=== PATIENT | female | born 1940 | race Caucasian/White ===

== ENCOUNTER 2019-02-02 22:42 | Emergency (ER) | payer MEDICARE, OTHER ==
[2019-02-02 23:52] LABS: Albumin 4.4 g/dL (3.5-5.0); Calcium 9.5 mg/dL (8.4-10.2); Potassium 4.2 mmol/L (3.5-5.1); Total Bilirubin 0.9 mg/dL (0.2-1.3); Total Protein 6.9 g/dL (6.3-8.2)
[2019-02-02 23:55] LABS: Basophils # (A) 0.1 k/uL (0-0.2); Basophils % (A) 1 %; Eosinophils # (A) 0.2 k/uL (0-0.7); Eosinophils % (A) 3 %; Lymphocytes # (A) 1.9 k/uL (1.0-4.8); Lymphocytes % (A) 28 %; MCH 29.3 pg (25.0-35.0); MCHC 33.2 g/dL (31.0-37.0); MCV 88.1 fL (80.0-100.0); Mean Platelet Volume 7.2; Monocytes # (A) 0.3 k/uL (0-1.0); Monocytes % (A) 5 %; Neutrophils # (A) 4.1 k/uL (1.3-7.7); Neutrophils % (A) 62 %; Platelet Count 265 k/uL (150-450); RBC 4.77 m/uL (3.80-5.40); RDW 13.9 % (11.5-15.5); WBC 6.6 k/uL (3.8-10.6)
--- NOTE | 2019-02-03 00:28 | XR ---
EXAM: XR Right Tibia and Fibula, 2 Views CLINICAL HISTORY: Pain. Fall. TECHNIQUE: Frontal and lateral views of the right tibia and fibula. COMPARISON: No relevant prior studies available. FINDINGS: Bones/joints: No acute fracture. No dislocation. Mild degenerative changes at the ankle and knee. Soft tissues: Unremarkable. No radiopaque foreign body. IMPRESSION: No acute fracture of right tibia or fibula.
[2019-02-03 00:30] VITALS: BP 187/86; PULSE 74; RESP 16; TEMP 98.3
--- NOTE | 2019-02-03 00:37 | XR ---
EXAM: XR Left Knee, 4 views XR Right Knee, 4 views CLINICAL HISTORY: Pain. Fall. TECHNIQUE: 4 views of the bilateral knees. COMPARISON: No relevant prior studies available. FINDINGS: Bones/joints: No radiographic evidence of acute fracture. No dislocation. Mild degenerative changes, most prominent at the lateral patella. Soft tissues: Mild soft tissue swelling along anterior and medial aspects of knees. IMPRESSION: 1. No radiographic evidence of acute fracture or dislocation of the knees. 2. Mild degenerative changes of the knees. 3. Mild soft tissue swelling. Correlate clinically.
[2019-02-03 01:07] LABS: Appearance,Urine Cloudy (Clear); Bilirubin,Urine Negative (Negative); Blood,Urine Negative (Negative); Color,Urine Yellow; Glucose,Urine (UA) Negative (Negative); Ketones,Urine Trace (Negative); Leukocyte Esterase,Urine Moderate (Negative); Mucus,Urine Rare /hpf; Nitrite,Urine Negative (Negative); PH, Urine 5.5 (5.0-8.0); Protein,Urine Negative (Negative); RBC,Urine 4 /hpf (0-5); Specific Gravity,Urine 1.018 (1.001-1.035); Squamous Epithelial Cell,Urine 8 /hpf (0-4); Urobilinogen,Urine <2.0 mg/dL (<2.0); WBC,Urine 5 /hpf (0-5)
[2019-02-03] MEDS ORDERED: HYDROcodone/APAP 7.5-325MG 1 EACH TAB PO ONE (01:23)
--- NOTE | 2019-02-03 01:25 | ED ---
General Adult HPI - General Chief complaint: Extremity Injury, Lower Stated complaint: Rt leg issues Time Seen by Provider: 02/02/19 23:06 Source: patient, RN notes reviewed, old records reviewed Mode of arrival: wheelchair Limitations: no limitations - History of Present Illness Initial comments: 78-year-old female patient presents to ED after a mechanical fall. Patient reports that she was outside bending over when she lost her footing and fell on her knees bilaterally. Patient has been ambulatory since fall. Patient complains of pain in her right mid shaft fibula laterally. Patient has secondary complaint in regards to varicose vein in her right lower extremity. Patient reports that her varicose vein on the right lower extremity is mildly w orse than before. Patient denies any other complaints at this time. Patient has a chest pain, shortness of breath abdominal pain, nausea vomiting or diarrhea. Systemic: Pt denies fatigue, myalgia, fever/chills, rash. Pt denies weakness, night sweats, weight loss. Neuro: Pt denies headache, visual disturbances, syncope or pre-syncope. HEENT: Pt denies ocular discharge or irritation, otalgia, rhinorrhea, pharyngitis or notable lymphadenopathy. Cardiopulmonary: Pt denies chest pain, SOB, heart palpitations, dyspnea on exertion. Abdominal/GI: Pt denies abdominal pain, n/v/d. : Pt denies dysuria, burning w/ urination, frequency/urgency. Denies new onset urinary or bowel incontinence. MSK: Pt denies myalgia, loss of strength or function in extremities. Neuro: Pt denies new onset weakness, paresthesias. - Related Data Home Medications Medication Instructions Recorded Confirmed Thyroid,Pork [Nature-Throid] 130 mg PO DAILY 02/02/19 02/02/19 cloNIDine HCL [Catapres] 0.2 mg PO HS 02/02/19 02/02/19 Allergies Allergy/AdvReac Type Severity Reaction Status Date / Time No Known Allergies Allergy Verified 02/02/19 23:36 Review of Systems ROS Statement: Those systems with pertinent positive or pertinent negative responses have been documented in the HPI. ROS Other: All systems not noted in ROS Statement are negative. Past Medical History Past Medical History: Hypertension, Thyroid Disorder History of Any Multi-Drug Resistant Organisms: None Reported Past Surgical History: Appendectomy, Orthopedic Surgery Past Psychological History: No Psychological Hx Reported Smoking Status: Current every day smoker Past Alcohol Use History: None Reported Past Drug Use History: None Reported General Exam - General Exam Comments Initial Comments: Constitutional: NAD, AOX3, Pt has pleasant affect. HEENT: NC/AT, trachea midline, neck supple, no lymphadenopathy. Posterior pharynx non erythematous, without exudates. External ears appear normal, without discharge. Mucous membranes moist. Eyes PERRLA, EOM intact. There is no scleral icterus. No pallor noted. Cardiopulmonary: RRR, no murmurs, rubs or gallops, no JVD noted. Lungs CTAB in anterior and posterior cortez. No peripheral edema. Abdominal exam: Abdomen soft and non-distended. Abdomen non-tender to palpation in all 4 quadrants. Bowel sounds active in LLQ. No hepatosplenomegaly. No ecchymosis Neuro: CN II-XII intact. No nuchal rigidity. NIH 0 MSK: Varicosity noted in right lower extremity, lateral midshaft fibula region. No pathology identified. Distal pulses intact and equal. Full active range of motion of knees bilaterally. No posterior calf tenderness bilaterally, homans sign negative bilaterally. Posterior tibialis and radial pulse +2 bilaterally. Sensation intact in upper and lower extremities. Full active ROM in upper and lower extremities, 5/5 stregnth. Limitations: no limitations Course Vital Signs 02/02/19 02/03/19 22:48 00:29 Temperature 98.7 F 98.3 F Pulse Rate 80 74 Respiratory 20 16 Rate Blood Pressure 197/81 187/86 O2 Sat by Pulse 97 96 Oximetry Medical Decision Making - Medical Decision Making 78-year-old female patient presents to ED after a mechanical fall. Patient reports that she was outside bending over when she lost her footing and fell on her knees bilaterally. Patient has been ambulatory since fall. Patient complains of pain in her right mid shaft fibula laterally. Patient has secondary complaint in regards to varicose vein in her right lower extremity. Patient reports that her varicose vein on the right lower extremity is mildly worse than before. Patient denies any other complaints at this time. Patient has a chest pain, shortness of breath abdominal pain, nausea vomiting or diarrhea. Patient was signed displayed mild hypertension, improved without dimension. Patient comfortable with monitoring blood pressure at home and take medication. Physical exam displayed: Varicosity noted in right lower extremity, lateral midshaft fibula region. No pathology identified. Distal pulses intact and equal. Full active range of motion of knees bilaterally. No posterior calf tenderness bilaterally, homans sign negative bilaterally. Posterior tibialis and radial pulse +2 bilaterally. Sensation intact in upper and lower extremities. Full active ROM in upper and lower extremities, 5/5 stregnth. Vital right tibia displayed no acute fracture per pathology. Plain film of right tibia-fibula displayed no radiographic evidence of acute fracture dislocation of the knees. Mild degenerative change of the knees. Mild soft tissue swelling. Shared decision making conducted with patient and family, they would prefer some basic laboratory investigations to ensure that any abnormality was responsible for fall. Pt continues to deny any weakness or any complaint at this time. Laboratory investigations revealed CBC, CMP, UA. EKG not concerning for acute ischemia. Patient discharged will follow-up with primary care provider in 1-2 days. Patient return to ER if condition worsens. Case discussed with Dr. Huitron. - Lab Data Result diagrams: 02/02/19 23:07 02/02/19 23:07 Lab Results 02/02/19 02/02/19 02/03/19 Range/Units 23:07 23:07 00:50 WBC 6.6 (3.8-10.6) k/uL RBC 4.77 (3.80-5.40) m/uL Hgb 14.0 (11.4-16.0) gm/dL Hct 42.0 (34.0-46.0) % MCV 88.1 (80.0-100.0) fL MCH 29.3 (25.0-35.0) pg MCHC 33.2 (31.0-37.0) g/dL RDW 13.9 (11.5-15.5) % Plt Count 265 (150-450) k/uL Neutrophils % 62 % Lymphocytes % 28 % Monocytes % 5 % Eosinophils % 3 % Basophils % 1 % Neutrophils # 4.1 (1.3-7.7) k/uL Lymphocytes # 1.9 (1.0-4.8) k/uL Monocytes # 0.3 (0-1.0) k/uL Eosinophils # 0.2 (0-0.7) k/uL Basophils # 0.1 (0-0.2) k/uL Sodium 140 (137-145) mmol/L Potassium 4.2 (3.5-5.1) mmol/L Chloride 108 H (98-107) mmol/L Carbon Dioxide 24 (22-30) mmol/L Anion Gap 8 mmol/L BUN 14 (7-17) mg/dL Creatinine 0.75 (0.52-1.04) mg/dL Est GFR (CKD-EPI)AfAm 89 (>60 ml/min/1.73 sqM) Est GFR (CKD-EPI)NonAf 77 (>60 ml/min/1.73 sqM) Glucose 90 (74-99) mg/dL Calcium 9.5 (8.4-10.2) mg/dL Total Bilirubin 0.9 (0.2-1.3) mg/dL AST 26 (14-36) U/L ALT 25 (9-52) U/L Alkaline Phosphatase 78 (38-126) U/L Total Protein 6.9 (6.3-8.2) g/dL Albumin 4.4 (3.5-5.0) g/dL Urine Color Yellow Urine Appearance Cloudy H (Clear) Urine pH 5.5 (5.0-8.0) Ur Specific [place] 1.018 (1.001-1.035) Urine Protein Negative (Negative) Urine Glucose (UA) Negative (Negative) Urine Ketones Trace H (Negative) Urine Blood Negative (Negative) Urine Nitrite Negative (Negative) Urine Bilirubin Negative (Negative) Urine Urobilinogen <2.0 (<2.0) mg/dL Ur Leukocyte Esterase Moderate H (Negative) Urine RBC 4 (0-5) /hpf Urine WBC 5 (0-5) /hpf Ur Squamous Epith Cells 8 H (0-4) /hpf Urine Mucus Rare H (None) /hpf - EKG Data -: EKG Interpreted by Me EKG Comments: Ventricular rate 77, NE interval 198, QRS 96, QT/QTc 42/454. Normal sinus rhythm, possible left atrial enlargement. Ventricular hypertrophy. Possible lateral infarct age undetermined. No concern for acute ischemia. Disposition Clinical Impression: Fall Disposition: HOME SELF-CARE Condition: Stable Instructions (If sedation given, give patient instructions): Fall Prevention for Older Adults (ED) Additional Instructions: Patient to adhere to previously discussed treatment plan and will take medication(s) as directed. Patient to follow up with PCP in 1-2 days. Patient to return to ED if symptoms do not improve. Follow-up with primary care provider in 1-2 days. Return to ER if condition worsens. Is patient prescribed a controlled substance at d/c from ED?: No Referrals: Diana José DO [Primary Care Provider] - 1-2 days
== END 2019-02-03 02:00 | disposition home or self-care (01) ==
LOC: EC 22:42
DX: M17.0 Bilateral primary osteoarthritis of knee (principal); I10 Essential (primary) hypertension; E07.9 Disorder of thyroid, unspecified; F17.200 Nicotine dependence, unspecified, uncomplicated; Z79.899 Other long term (current) drug therapy; W19.XXXA Unspecified fall, initial encounter
CPT/HCPCS: 36415; 80053; 81001; 85025; 99284